=== PATIENT | female | born 1995 | race Caucasian/White ===

== ENCOUNTER 2016-08-06 13:27 | Inpatient (IN) | payer OTHER, MEDICAID ==
[2016-08-06] MEDS ORDERED: OXYTOCIN/DEXTROSE 5%-WATER 30 UNITS/500 ML BAG IV ONE ×2 (13:31→16:22)
[2016-08-06] MEDS ORDERED: DEXTROSE 5%-LACTATED RINGERS 1,000 ML IV PRN (13:31)
[2016-08-06] MEDS ORDERED: ONDANSETRON HCL/PF 2 MG/ML VIAL IV PRN ×3 (13:31→13:52)
[2016-08-06] MEDS ORDERED: LIDOCAINE HCL 50 ML VIAL PERI PRN (13:31)
[2016-08-06] MEDS ORDERED: RINGERS SOLUTION,LACTATED 1,000 ML IV ONE (13:31)
[2016-08-06] MEDS ORDERED: BUPIVACAINE HCL/0.9 % NACL/PF 250 ML EP PRN (13:39)
[2016-08-06] MEDS ORDERED: NALOXONE HCL 1 MG/1 ML SYRG IV PRN ×2 (13:39→13:52)
[2016-08-06] MEDS ORDERED: BUPIVACAINE HCL/PF 30 ML VIAL EP SCH (13:45)
[2016-08-06] MEDS ORDERED: fentaNYL CITRATE/PF 50 MCG/ML AMPUL IT SCH (14:00)
--- NOTE | 2016-08-06 14:12 | OR ---
Anesthesia Procedure Note - Anesthesia Procedure Note Date of Service: 08/06/16 Narrative: Vital Signs - Last Taken Temp 37.1 C 08/06/16 14:06 Pulse 87 08/06/16 14:06 Resp 22 H 08/06/16 14:06 BP 101/56 08/06/16 14:06 Pulse Ox 100 08/06/16 14:06 08/06/16 14:09 ANESTHESIA PROCEDURE NOTE Date of Procedure: 08/06/2016. Time of procedure: 1350. Performed by: Jacques Oakes CRNA Placement Officer: None. Preprocedure diagnosis: Active labor. Post procedure diagnosis: Same. Procedure: Intrathecal injection of fentanyl. Indications: The patient is a 21 -year-old female in active labor requesting labor epidural for pain management. Findings: See below. Details of the procedure: The patient was placed in a sitting position. DuraPrep to the patient's back. Patient was then draped in a sterile fashion. Lidocaine 1% was infiltrated to the skin and subcutaneous tissues at the level of the L3-4 interspace. Free flow of cerebrospinal fluid was obtained using a 25-gauge Pencan spinal needle. 20 mics of fentanyl was injected and the spinal needle was removed intact. No paresthesias were noted during procedure. EBL: Minimal. Fluids: N/A. Specimen: N/A. Post procedure condition: The patient tolerated the procedure well. No complications were noted. Thank you for this consultation. Jacques Oakes CRNA
[2016-08-06] MEDS ORDERED: HYDROCORTISONE 30 APPL TUBE TP PRN (16:22)
[2016-08-06] MEDS ORDERED: BISACODYL 10 MG SUPP.RECT RC PRN (16:22)
[2016-08-06] MEDS ORDERED: BENZOCAINE/MENTHOL 81 SPRAY CAN TP PRN (16:22)
[2016-08-06] MEDS ORDERED: GLYCERIN/WITCH HAZEL LEAF 40 APPL BOX TP PRN (16:22)
[2016-08-06] MEDS ORDERED: SENNOSIDES 8.6 MG TABLET PO PRN (16:22)
--- NOTE | 2016-08-06 16:24 | OR ---
Operative Report - Dictated Report Narrative: Artificial rupture of membranes revealed port wine colored fluid. Spontaneous vaginal delivery of viable male at 1428 on 08/06/2016 with Apgars 9 and 9, weighing 3057 g. Nuchal cord 1 Cord clamping delayed approximately 1 minute Placenta delivered complete, intact, with three vessel cord Estimated blood loss: less than 50 ml Lacerations: First-degree right periurethral laceration with no repair
[2016-08-06] MEDS: IBUPROFEN 800 MG TABLET PO PRN (16:39)
[2016-08-06] MEDS: oxyCODONE HCL/ACETAMINOPHEN 1 TAB TABLET PO PRN ×2 (18:10→21:35)
[2016-08-06] MEDS: DOCUSATE SODIUM 100 MG CAPSULE PO SCH (20:25)
[2016-08-07] MEDS: oxyCODONE HCL/ACETAMINOPHEN 1 TAB TABLET PO PRN ×4 (01:17→19:58)
[2016-08-07] MEDS: IBUPROFEN 800 MG TABLET PO PRN ×3 (01:18→16:25)
[2016-08-07] MEDS: PRENATAL VIT#96/FERROUS FUM/FA 1 TAB TABLET PO SCH (08:16)
[2016-08-07] MEDS: FERROUS SULFATE 325 MG TABLET PO SCH (08:16)
[2016-08-07] MEDS: DOCUSATE SODIUM 100 MG CAPSULE PO SCH (08:16)
--- NOTE | 2016-08-07 12:09 | PN ---
Subjective - Date and Time Seen Date: 08/07/16 Time: 12:09 Objective - Vitals Vitals: Last Vital Signs Temp 36.4 C L 08/07/16 06:48 Pulse 85 08/07/16 06:48 Resp 16 08/07/16 06:48 BP 105/63 08/07/16 06:48 Pulse Ox 99 08/07/16 06:48 Patient denies complaints. Lochia wnl Abdomen - soft, nontender Uterus - firm, at umbilicus - 1 No calf tenderness Impression: day #1 - s/p spontaneous vaginal delivery. Plan: Continue routine care
[2016-08-08] MEDS: oxyCODONE HCL/ACETAMINOPHEN 1 TAB TABLET PO PRN ×3 (01:55→14:45)
[2016-08-08] MEDS: DOCUSATE SODIUM 100 MG CAPSULE PO SCH ×2 (01:55→08:51)
[2016-08-08] MEDS: IBUPROFEN 800 MG TABLET PO PRN ×2 (01:56→08:52)
--- NOTE | 2016-08-08 05:54 | PATH ---
PHYSICIAN: Rodrigo Weinstein DO LAB#: [id number] SPECIMEN DATE: 08/07/2016 SPECIMEN: Placenta CLINICAL INFORMATION: Smoker, opiate in the first trimester, fast labor. Artificial rupture of membrane with port wine amniotic fluid. Spontaneous vaginal delivery of viable male with Apgars 9 and 9 and weighing 3057 g. nuchal cord 1 GROSS DESCRIPTION: The specimen is received in a formalin filled container appropriately designated but not as to site. The specimen consists of a 19.1 x 18.6 x 3.5 cm 585 g placenta with an eccentric attached 46 cm x 1.1 cm trivascular umbilical cord. The membranes are slightly opacified. The plate is slate sales with no abnormalities. Maternal cotyledons are unremarkable. Cross-sections through the placenta shows beefy red parenchyma with no focal lesions. Summary of cassettes: 1 = umbilical cord; 2,3 = plate; 4 = maternal surface; 5 = membranes. DIAGNOSIS: INTRAUTERINE CONTENTS, SPONTANEOUS VAGINAL DELIVERY: THIRD TRIMESTER TRI-VASCULAR UMBILICAL CORD 585 GRAM PLACENTA SHOWING: -NO PATHOLOGIC FINDINGS COMMENT: No evidence of chorioamnionitis or infarction.
[2016-08-08] MEDS: PRENATAL VIT#96/FERROUS FUM/FA 1 TAB TABLET PO SCH (08:51)
[2016-08-08] MEDS: FERROUS SULFATE 325 MG TABLET PO SCH (08:51)
[2016-08-08 09:01] VITALS: BP 127/92
--- NOTE | 2016-08-08 10:44 | PN ---
Subjective - Date and Time Seen Date: 08/08/16 Time: 10:43 Objective - Vitals Vitals: Last Vital Signs Temp 36.6 C 08/08/16 08:50 Pulse 67 08/08/16 08:50 Resp 18 08/08/16 08:50 BP 127/92 08/08/16 08:50 Pulse Ox 99 08/08/16 08:50 Patient denies complaints. Lochia wnl Abdomen - soft, nontender Uterus - firm, at umbilicus - 2 No calf tenderness Impression: day #2 - s/p spontaneous vaginal delivery. Plan: Routine discharge instructions
== END 2016-08-08 15:35 | disposition home or self-care (01) | DRG 775 ==
LOC: OB 13:27
PROVIDERS: ADMIT Obstetrics & Gynecology; ATTEND Obstetrics & Gynecology
PROC: 10E0XZZ Delivery of Products of Conception, External Approach (ICD-10-PCS; principal; 2016-08-06)
PROC: 10907ZC Drainage of Amniotic Fluid, Therapeutic from Products of Conception, Via Natural or Artificial Opening (ICD-10-PCS; 2016-08-06)
PROC: 4A1HXCZ Monitoring of Products of Conception, Cardiac Rate, External Approach (ICD-10-PCS; 2016-08-06)
PROC: 00HU33Z Insertion of Infusion Device into Spinal Canal, Percutaneous Approach (ICD-10-PCS; 2016-08-06)
DX: O99.02 Anemia complicating childbirth (principal); D64.9 Anemia, unspecified; O69.81X0 Labor and delivery complicated by cord around neck, without compression, not applicable or unspecified; O70.0 First degree perineal laceration during delivery; Z3A.38 38 weeks gestation of pregnancy; Z37.0 Single live birth

== ENCOUNTER 2018-02-11 06:46 | Observation (INO) ==
[2018-02-11 07:51] LABS: Cocaine Ur Negative (NEGATIVE); Urine Barbiturate Negative (NEGATIVE); Urine Benzodiazepines Negative (NEGATIVE); Urine Opiates Negative (NEGATIVE); Urine PCP Negative (NEGATIVE); Urine THC Negative (NEGATIVE)
[2018-02-11] MEDS ORDERED: BETAMETHASONE ACETATE,SOD PHOS 6 MG/ML VIAL IM ONE (08:26)
[2018-02-11] MEDS ORDERED: TERBUTALINE SULFATE 1 MG/ML VIAL SC ONE (08:41)
[2018-02-11] MEDS ORDERED: TERBUTALINE SULFATE 1 MG/ML VIAL SC PRN (08:41)
[2018-02-11] MEDS ORDERED: CLINDAMYCIN PHOSPHATE 900 MG in DEXTROSE 5 % IN WATER 100 ML IV ONE ×2 (08:41)
[2018-02-11] MEDS ORDERED: RINGER'S SOLUTION,LACTATED 1,000 ML IV PRN (08:41)
[2018-02-11 10:33] LABS: Urine Bilirubin Negative (NEGATIVE); Urine Blood Negative /ul (NEGATIVE); Urine Ketone Negative (NEGATIVE); Urine Nitrite Negative (NEGATIVE); Urine Protein Negative (NEGATIVE); Urine Urobilinogen Normal (NORMAL); Urine pH 6.5 pH (5.0-7.0)
--- NOTE | 2018-02-11 10:40 | HP ---
Chief Complaint - Chief Complaint Date of Service: 02/11/18 Time of Service: 10:04 Chief Complaint: contractions History of Present Illness: 23 yo at 35 5/7 weeks presents to L&D complaining of frequent painful contractions (5/10) awakening her from sleep around 0400 this am. She denies recent coitus, trauma, LOF, vaginal bleeding, abnormal vaginal d/c, UTI s/s, recent illnesses, or drug use. This complicated by anemia, h/o meth use, and poor dentition. Her UDS was positive for amphetamines at first PNV and today. She denies use of meth, but admits to being around others using it. Upon presentation to L&D, she was sj q 2-3 min, her cervix made minor change from 03/07/-3 to 2/-2. Contractions stopped after one dose of terbutaline. Rh negative Rubella immune GBS pending Medical History (Last Reviewed 02/11/18 @ 10:33 by Rodrigo Weinstein DO) Influenza vaccination declined by patient (Acute) Onset Date: 11/18/17 Eczema Anemia Onset Date: ~05/31/16 Surgical History: Surgical History (Last Reviewed 10/07/17 @ 13:52 by Rodrigo Weinstein DO) No pertinent past surgical history Family History: Family History (Last Reviewed 10/07/17 @ 13:52 by Rodrigo Weinstein DO) Father Alive and well Mother Hypertension Grandfather Diabetes Social History: Preferred Language Fijian Smoking Status Current every day smoker Abuse History No History of abuse Psych History No pertinent hx (Last Updated 11/18/17 @ 11:48 by Rodrigo Weinstein DO) No Social History Section defined Review Of Systems (GEN) - Review of Systems Generalized/Overall Review: Present: No Symptoms Reported EENTM: Present: No Symptoms Reported Respiratory: Present: No Symptoms Reported Cardiac: Present: No Symptoms Reported Abdominal: Present: Other - contractions 5/10 Genitourinary: Present: No Symptoms Reported Musculoskeletal: Present: No Symptoms Reported Neurological: Present: No Symptoms Reported Skin: Present: No Symptoms Reported Endocrine: Present: No Symptoms Reported Immunizations: IMMUNIZATION HX Immunizations Up to Date Yes History of Influenza Vaccine No Hx Pneumococcal Vaccination No Allergies/Adverse Reactions: Allergies Allergy/AdvReac Type Severity Reaction Status Date / [facility] Allergy Anaphylaxis Verified 02/11/18 07:09 Penicillins Allergy Anaphylaxis Verified 02/11/18 07:09 Sulfa (Sulfonamide Allergy Anaphylaxis Verified 02/11/18 07:09 Antibiotics) Home Medications: HOME MEDICATIONS Vits96/Iron Fum/Folic [ S] 1 tab PO DAILY 08/06/16 [Last Taken Unknown] Exam - Exam Vital Signs: Vital Signs - Last Taken Temp 36.2 C 02/11/18 09:53 Pulse 109 H 02/11/18 09:53 Resp 18 02/11/18 09:53 BP 116/69 02/11/18 09:53 Pulse Ox 100 02/11/18 09:53 Constitutional: Present: Alert, Oriented x3, Cooperative, No distress ENT Exam: Present: hearing grossly normal Neck: Present: non-tender, trachea midline. Absent: lymphadenopathy (R), lymphadenopathy (L), thyromegaly Breasts: Present: Exam deferred Respiratory: Present: lungs clear, no respiratory distress Cardiovascular/Chest: Present: normal peripheral pulses, regular rate, rhythm - mild tachycardia after dose of terbuataline, no edema Abdomen: Present: soft, nontender, no rebound tenderness, other - gravid /Rectal: Present: Other - cervix 2/60/-2 Extremity: Present: no pedal edema, no calf tenderness Skin Exam: Present: normal color, warm/dry, no cyanosis Lymphatic: Present: no adenopathy Neurologic: Present: alert, normal mood/affect, oriented x 3 Appearance: Present: appropriate appearance Eye contact: Present: cooperative, good eye contact Thoughts: Present: normal thought pattern Diagnostic Studies: Abnormal Lab Results 02/11/18 Range/Units 07:20 Urine Amphetamine Positive H (NEGATIVE) Laboratory Results Urine Opiates Screen Negative (NEGATIVE) 02/11/18 07:20 Barbiturate Screen Negative (NEGATIVE) 02/11/18 07:20 Ur Phencyclidine Scrn Negative (NEGATIVE) 02/11/18 07:20 Urine Amphetamine Positive (NEGATIVE) H 02/11/18 07:20 U Benzodiazepines Scrn Negative (NEGATIVE) 02/11/18 07:20 Urine Cocaine Screen Negative (NEGATIVE) 02/11/18 07:20 Urine Marijuana (THC) Negative (NEGATIVE) 02/11/18 07:20 Assessment/Plan - Assessment/Plan (1) labor in third trimester Assessment: Responded to terbuataline. Will admit for 23 hour observation to complete course of steroids and continue IV Clindamycin for GBS prophylaxis until culture available. If continues to make cervical change will transfer to [facility]. Problem: Acute Qualifiers: labor delivery status: without delivery Qualified Code(s): O60.03 - labor without delivery, third trimester (2) Substance abuse complicating , antepartum Problem: Chronic (3) Anemia affecting Problem: Acute Qualifiers: Trimester: third trimester Qualified Code(s): O99.013 - Anemia complicating , third trimester
[2018-02-11 10:41] LABS: Urine Appearance Clear (CLEAR); Urine Color Pale Yellow; Urine RBC None Seen /hpf (0-5); Urine WBC 0-5 /hpf (0-5)
[2018-02-11 10:42] LABS: Urine Bacteria TRACE
[2018-02-11] MEDS ORDERED: ACETAMINOPHEN 325 MG TABLET PO PRN (20:42)
[2018-02-12 08:14] VITALS: BP 94/41
[2018-02-12] MEDS ORDERED: BETAMETHASONE ACETATE,SOD PHOS 6 MG/ML VIAL IM ONE (09:54)
--- NOTE | 2018-02-12 09:58 | PN ---
Subjective - Date and Time Seen Date: 02/12/18 Time: 09:55 Subjective Narrative: Patient denies contractions, LOF, decreased FM, or vaginal d/c. Objective - Review of Systems Generalized/Overall Review: Reports: No Symptoms Reported EENTM: Reports: No Symptoms Reported Respiratory: Reports: No Symptoms Reported Cardiac: Reports: No Symptoms Reported Abdominal: Reports: No Symptoms Reported Genitourinary Symptoms: Reports: No Symptoms Reported Musculoskeletal Complaints: Reports: No Symptoms Reported Neurological: Reports: No Symptoms Reported Skin: Reports: No Symptoms Reported Endocrine: Reports: No Symptoms Reported - Vitals Vitals: Last Vital Signs Temp 36.7 C 02/12/18 08:12 Pulse 105 H 02/12/18 08:12 Resp 20 02/12/18 08:12 BP 94/41 02/12/18 08:12 Pulse Ox 97 02/12/18 08:12 - Abnormal Lab Findings Abnormal Lab Findings: Abnormal Lab Results 02/11/18 Range/Units 10:00 Ur Epithelial Cells 5-10 H (0-5) /hpf - EKG/Xray Findings EKG: other - NST reactive - Exam Constitutional: Present: Alert, Oriented x3, Cooperative ENT Exam: Present: hearing grossly normal Respiratory: Present: no respiratory distress Cardiovascular/Chest: Present: regular rate, rhythm Abdomen: Present: soft, nontender, other - gravid /Rectal: Present: Exam deferred Extremity: Present: no calf tenderness Skin Exam: Present: normal color, warm/dry, no cyanosis Appearance: Present: appropriate appearance Eye contact: Present: cooperative, good eye contact Thoughts: Present: normal thought pattern Assessment/Plan Plan Narrative: Discharge to home. F/u in one week. PTL precautions. Avoid substance abuse. DHS/Social service referral. - Problems/Diagnosis (1) labor in third trimester Problem: Acute Qualifiers: labor delivery status: without delivery Qualified Code(s): O60.03 - labor without delivery, third trimester (2) Substance abuse complicating , antepartum Problem: Chronic (3) Anemia affecting Problem: Acute Qualifiers: Trimester: third trimester Qualified Code(s): O99.013 - Anemia complicating , third trimester
== END 2018-02-12 09:25 | disposition home or self-care (01) ==
LOC: OBCLINIC 06:46 → OB 06:46
PROVIDERS: ADMIT Obstetrics & Gynecology; ATTEND Obstetrics & Gynecology
DX: O99.013 Anemia complicating pregnancy, third trimester; O60.03 Preterm labor without delivery, third trimester; O99.320 Drug use complicating pregnancy, unspecified trimester
CPT/HCPCS: 59025; 80307; 81001; 87081; 96372; G0378; G0379

== ENCOUNTER 2018-03-12 14:59 | Inpatient (IN) ==
[2018-03-12] MEDS ORDERED: DEXTROSE 5%-LACTATED RINGERS 1,000 ML IV PRN (15:04)
[2018-03-12] MEDS ORDERED: ONDANSETRON HCL/PF 2 MG/ML VIAL IV PRN ×2 (15:04→15:15)
[2018-03-12] MEDS ORDERED: RINGER'S SOLUTION,LACTATED 1,000 ML IV ONE (15:04)
[2018-03-12] MEDS ORDERED: OXYTOCIN/DEXTROSE 5%-WATER 30 UNITS/500 ML BAG IV ONE ×2 (15:04→18:24)
[2018-03-12] MEDS ORDERED: LIDOCAINE HCL 50 ML VIAL PERI PRN (15:04)
[2018-03-12] MEDS ORDERED: fentaNYL CITRATE/PF 50 MCG/ML AMPUL IT SCH (15:15)
[2018-03-12] MEDS ORDERED: BUPIVACAINE HCL/0.9 % NACL/PF 250 ML EP PRN (15:15)
[2018-03-12] MEDS ORDERED: NALOXONE HCL 1 MG/1 ML SYRG IV PRN (15:15)
[2018-03-12 15:40] LABS: Cocaine Ur Negative (NEGATIVE); Urine Barbiturate Negative (NEGATIVE); Urine Benzodiazepines Negative (NEGATIVE); Urine Opiates Negative (NEGATIVE); Urine PCP Negative (NEGATIVE); Urine THC Negative (NEGATIVE)
--- NOTE | 2018-03-12 15:47 | ANES ---
Anesthesia Pre Procedure Eval Vitals/Labs: HR:102 BP: 121/71 RR:20 T: 36.5 C SaO2:100 HOME MEDICATIONS RX: Vits96/Iron Fum/Folic [ S] 1 tab PO DAILY 08/06/16 [Last Taken 02/26/18] RX: Ferrous Sulfate 325 mg PO BID #60 tab 02/12/18 [Last Taken 02/25/18] Allergies/Adverse Reactions: Allergies Allergy/AdvReac Type Severity Reaction Status Date / Time cefaclor [From [facility]] Allergy Anaphylaxis Verified 03/12/18 15:08 Penicillins Allergy Anaphylaxis Verified 03/12/18 15:08 Sulfa (Sulfonamide Allergy Anaphylaxis Verified 03/12/18 15:08 Antibiotics) - Planned Procedure Planned Procedure: LABOR Medication List Reviewed:: Yes Allergies Verified: Yes Medical History (Last Reviewed 03/12/18 @ 15:43 by Cole Hay CRNA) Influenza vaccination declined by patient (Acute) Onset Date: 11/18/17 Eczema Anemia Onset Date: ~05/31/16 Surgical History (Last Reviewed 03/12/18 @ 15:43 by Cole Hay CRNA) No pertinent past surgical history Family History (Last Reviewed 03/12/18 @ 15:43 by Cole Hay CRNA) Father Alive and well Mother Hypertension Grandfather Diabetes - Family Anesthesia History Family History:: no untoward family reactions to anesthesia, no familial bleeding tendencies, no family history of clotting disorders, no family history of premature - Airway/Neck/Teeth Within Normal Limits:: Yes Teeth Condition: intact Neck Exam: full range of motion Mallampatti Score: 2 Thyromental (T-M) distance: > 6 cm Mandibulo Hyoid distance: > 3 cm - Respiratory Respiratory Physical: wheezing Smoking Status: Current some day smoker Discussed smoking cessation including day of surgery: Yes Sleep Apnea currently treated: No Sleep Apnea by current assessment: No - Cardiovascular Tolerate Activity: Fair Heart Sounds: S1 & S2, Regular - Anesthesia Assessment and Plan ASA Class: PS, II, E Anesthesia Type Plan: Epidural - CSE for labor analgesia
[2018-03-12] MEDS ORDERED: LIDOCAINE HCL/EPINEPHRINE 20 ML VIAL ONE (15:52)
--- NOTE | 2018-03-12 16:06 | HP ---
Chief Complaint - Chief Complaint Date of Service: 03/12/18 Chief Complaint: vaginal bleeding and contractions History of Present Illness: 23 yo, CF, at 39.6 weeks, dated by a 17.4 week ultrasound, presents to the birthplace for vaginal bleeding. She woke up at about 2 pm from nap noting a small blood on her shot and came in for a check. Contractions started 40 min ago. denies leaking fluid. is complicated by limited care, non-compliance and urine drug screen positive for amphetamine x 2. Denies recent drug use in the past month. She had fast labor and delivery with her last that took only one hour. Her cervical exam was 4 cm, 75% and -2 with bloody show only. Placenta was left lateral fundal by a bedside ultrasound today. PMH: none PSH: none SH: admitted to drug use one month before, and smokes 1/2 ppd of cigarettes. labs: 1. GBS negative (02/11/18) 2. UDS positive for amphetamine x 2 ( 10/07/17, and 02/11/18) 3. blood type: A negative 4. rubella status unknown. Medical History (Last Reviewed 03/12/18 @ 15:43 by Cole Hay CRNA) Influenza vaccination declined by patient (Acute) Onset Date: 11/18/17 Eczema Anemia Onset Date: ~05/31/16 Surgical History: Surgical History (Last Reviewed 03/12/18 @ 15:43 by Cole Hay CRNA) No pertinent past surgical history Family History: Family History (Last Reviewed 03/12/18 @ 15:43 by Cole Hay CRNA) Father Alive and well Mother Hypertension Grandfather Diabetes Social History: Preferred Language Kyrgyz Smoking Status Current some day smoker Smoking packs per day 0.5 Abuse History No History of abuse Psych History No pertinent hx (Last Updated 02/17/18 @ 17:01 by Rodrigo Weinstein DO) No Social History Section defined Review Of Systems (GEN) - Review of Systems Abdominal: Present: Other - contractions Genitourinary: Present: Other - vaginal bleeding: bloody show Misc: All systems neg except as marked Immunizations: IMMUNIZATION HX Immunizations Up to Date Yes History of Influenza Vaccine No Hx Pneumococcal Vaccination No Allergies/Adverse Reactions: Allergies Allergy/AdvReac Type Severity Reaction Status Date / Time [facility] Allergy Anaphylaxis Verified 03/12/18 15:08 Penicillins Allergy Anaphylaxis Verified 03/12/18 15:08 Sulfa (Sulfonamide Allergy Anaphylaxis Verified 03/12/18 15:08 Antibiotics) Home Medications: HOME MEDICATIONS Vits96/Iron Fum/Folic [ S] 1 tab PO DAILY 08/06/16 [Last Taken 02/26/18] Ferrous Sulfate 325 mg PO BID #60 tab 02/12/18 [Last Taken 02/25/18] Exam - Exam Vital Signs: Vital Signs - Last Taken Temp 36.5 C 03/12/18 15:46 Pulse 102 H 03/12/18 15:46 Resp 20 03/12/18 15:46 BP 121/71 03/12/18 15:46 Pulse Ox 100 03/12/18 15:46 Constitutional: Present: Alert, Oriented x3, Cooperative Neck: Present: supple Respiratory: Present: lungs clear, normal breath sounds, no respiratory distress Cardiovascular/Chest: Present: regular rate, rhythm, no murmur Abdomen: Present: soft, nontender, nondistended, other - gravid /Rectal: Present: Other - cervix: 4 cm, 75% and -2, bloody show Extremity: Present: no pedal edema, no calf tenderness Skin Exam: Present: normal color, warm/dry, no cyanosis Appearance: Present: appropriate appearance Eye contact: Present: cooperative, good eye contact, normal speech Diagnostic Studies: Laboratory Results Urine Opiates Screen Negative (NEGATIVE) 03/12/18 15:00 Barbiturate Screen Negative (NEGATIVE) 03/12/18 15:00 Ur Phencyclidine Scrn Negative (NEGATIVE) 03/12/18 15:00 Urine Amphetamine Negative (NEGATIVE) 03/12/18 15:00 U Benzodiazepines Scrn Negative (NEGATIVE) 03/12/18 15:00 Urine Cocaine Screen Negative (NEGATIVE) 03/12/18 15:00 Urine Marijuana (THC) Negative (NEGATIVE) 03/12/18 15:00 presentation: cephalic by bedside u/s. FHR: reassuring 130s with accels, no decels. Lehr: irregular contractions Assessment/Plan - Narrative Narrative: A: at 39.6 weeks, in labor with bloody show and irregular contractions. GBS negative. Plan: admit for labor and monitor. routine labor care. epidural if desired. augmentation if needed. Shantanu Torrez Md
--- NOTE | 2018-03-12 16:12 | ANES ---
Post Anesthesia Discharge - Transfer of Care Transfer of Care handoff given to nurse: Yes - Discharge from PACU Discharge from PACU when meets criteria: Yes - Comfortable after CSE
--- NOTE | 2018-03-12 16:14 | ANES ---
Anesthesia Procedure Note Procedure Note: ANESTHESIA PROCEDURE NOTE Date of Procedure: 03/12/2018 Time of procedure: 1540. Performed by: Cole Hay CRNA, MSN Front End Technician: Mona Flaherty RN. Preprocedure diagnosis: Active labor, labor pain. Post procedure diagnosis: Same. Procedure:Epidural for labor analgesia L3 4. Indications: Labor pain. Findings: See below. Details of the procedure: The patient was placed on the side of the bed in sitting positionand prepped with DuraPrep then draped in a sterile fashion. Lidocaine 1% was infiltrated to the skin and subcutaneous tissues at the level of the L3 4 interspace. An 18-gauge Touhy needle was used to approach the epidural space with loss of resistance technique. Once loss of resistance was achieved a 27-gauge spinal needle was passed through the epidural needle and CSF was contacted. After CSF returned, 20 mcg of fentanyl was injected in the spinal needle was removed the epidural catheter was then threaded approximately 4 cm in the epidural needle was removed. The catheter was taped in place and after careful aspiration 3 mL of 2% lidocaine with 1-200,000 epinephrine was injected without change in maternal heart rate or sensorium. . EBL: Minimal. Fluids: N/A. Specimen: N/A. Post procedure condition: The patient tolerated the procedure well with good rel ief. No complications were noted. Thank you for this consultation. Cole Hay CRNA, MSN
--- NOTE | 2018-03-12 16:21 | ANES ---
Post Anesthesia Assessment - Vital Signs Vitals: Last Vital Signs Temp 36.5 C 03/12/18 15:46 Pulse 102 H 03/12/18 15:46 Resp 20 03/12/18 15:46 BP 121/71 03/12/18 15:46 Pulse Ox 100 03/12/18 15:46 Airway Patency: Normal - Mental Status Level Of Consciousness: Awake, Alert, Appropriate - Pain Level Pain Score: 0 - N/V Assessment Nausea/Vomiting Presence: None Dehydration:: No
[2018-03-12 17:20] LABS: Hematocrit 34.8 % (37.0-47.0); Hemoglobin 10.8 gm/dL (12.5-16.0); Mean Cell Volume 85.3 fl (78-100); Mean Corpuscular Hemoglobin 26.5 pg (27-31); Mean Platelet Volume 10.6 fl (8-12.5); Neutrophil % 76.5 % (42-75.0); Platelet Count 287 K/mm3 (150-450); Red Blood Count 4.08 M/mm3 (4.2-5.4); Red Cell Distribution Width 14.6 % (11.5-14.0); White Blood Count 15.6 K/mm3 (4.0-10.5)
[2018-03-12] MEDS ORDERED: SENNOSIDES 8.6 MG TABLET PO PRN (18:24)
[2018-03-12] MEDS ORDERED: GLYCERIN/WITCH HAZEL LEAF 40 APPL BOX TP PRN (18:24)
[2018-03-12] MEDS ORDERED: BISACODYL 10 MG SUPP.RECT RC PRN (18:24)
[2018-03-12] MEDS ORDERED: HYDROCORTISONE 30 APPL TUBE TP PRN (18:24)
[2018-03-12] MEDS ORDERED: BENZOCAINE/MENTHOL 81 SPRAY CAN TP PRN (18:24)
[2018-03-12] MEDS ORDERED: oxyCODONE HCL/ACETAMINOPHEN 1 TAB TABLET PO PRN (18:24)
--- NOTE | 2018-03-12 18:27 | OR ---
Operative Report - Dictated Report Narrative: Spontaneous vaginal delivery of vigorously crying viable male at 1807 on 03/12/2018 with Apgars 9 and 9, weighing 3407 g in BOB position. Terminal meconium. Cord clamping delayed approximately 1 minute Placenta delivered complete, intact, with three vessel cord Estimated blood loss: less than 50 ml Anesthesia: epidural Lacerations: None
[2018-03-12] MEDS: IBUPROFEN 800 MG TABLET PO PRN (20:45)
[2018-03-12] MEDS: DOCUSATE SODIUM 100 MG CAPSULE PO SCH (20:45)
[2018-03-12] MEDS: oxyCODONE HCL/ACETAMINOPHEN 1 TAB TABLET PO PRN (21:33)
[2018-03-13] MEDS: oxyCODONE HCL/ACETAMINOPHEN 1 TAB TABLET PO PRN ×4 (04:12→19:11)
[2018-03-13] MEDS: IBUPROFEN 800 MG TABLET PO PRN ×3 (04:46→22:01)
[2018-03-13] MEDS: DOCUSATE SODIUM 100 MG CAPSULE PO SCH ×3 (07:55→22:00)
--- NOTE | 2018-03-13 09:01 | PN ---
Subjective - Date and Time Seen Date: 03/13/18 Time: 09:01 Objective - Vitals Vitals: Last Vital Signs Temp 36.3 C 03/13/18 08:00 Pulse 96 03/13/18 08:00 Resp 18 03/13/18 08:00 BP 113/57 03/13/18 08:00 Pulse Ox 98 03/13/18 08:00 Patient denies complaints. Breast-feeding well Lochia wnl Abdomen - soft, nontender Uterus - firm, at umbilicus - 1 No calf tenderness Impression: day #1 - s/p spontaneous vaginal delivery. Plan: Continue routine care - Abnormal Lab Findings Abnormal Lab Findings: Abnormal Lab Results 03/12/18 Range/Units 17:10 WBC 15.6 H (4.0-10.5) K/mm3 RBC 4.08 L (4.2-5.4) M/mm3 Hgb 10.8 L (12.5-16.0) gm/dL Hct 34.8 L (37.0-47.0) % MCH 26.5 L (27-31) pg MCHC 31.0 L (32-36) g/dl RDW 14.6 H (11.5-14.0) % Immature Gran % (Auto) 0.60 H (0.001-0.429) % Immature Gran # (Auto) 0.09 H (0.000-0.0310) K/mm3 Neutrophils % 76.5 H (42-75.0) % Lymphocytes % 14.2 L (20-51) % Neutrophils # 12.0 H (1.3-6.0) K/mm3 Monocytes # 1.1 H (0.0-1.0) k/mm3 Cauti Physician Documentation - Urinary Catheter Management Urethral (Martinez) Date of Insertion: 03/12/18 Time of Insertion: 16:40 Date of Removal: 03/12/18 Time of Removal: 17:57
[2018-03-14] MEDS: oxyCODONE HCL/ACETAMINOPHEN 1 TAB TABLET PO PRN ×3 (01:57→14:36)
[2018-03-14] MEDS: IBUPROFEN 800 MG TABLET PO PRN ×2 (04:11→14:36)
[2018-03-14] MEDS: DOCUSATE SODIUM 100 MG CAPSULE PO SCH ×2 (07:59→11:00)
--- NOTE | 2018-03-14 13:21 | PN ---
Subjective - Date and Time Seen Date: 03/14/18 Time: 13:20 Objective - Vitals Vitals: Last Vital Signs Temp 36.6 C 03/14/18 07:15 Pulse 83 03/14/18 07:15 Resp 20 03/14/18 07:15 BP 108/70 03/14/18 07:15 Pulse Ox 98 03/14/18 07:15 Patient denies complaints. Breast-feeding Lochia wnl Abdomen - soft, nontender Uterus - firm, at umbilicus - 2 No calf tenderness Impression: day #2 - s/p spontaneous vaginal delivery. Plan: Routine discharge instructions Cauti Physician Documentation - Urinary Catheter Management Urethral (Martinez) Date of Insertion: 03/12/18 Time of Insertion: 16:40 Date of Removal: 03/12/18 Time of Removal: 17:57
[2018-03-14 14:03] VITALS: BP 112/67
[2018-03-17 11:26] LABS: Hep B Surface Antigen Confirm DNR
[2018-03-17 11:53] LABS: Hepatitis B Surface Antigen NON-REACTIVE (NON-REACTIVE)
--- NOTE | 2018-03-20 16:40 | PN ---
Progess Note - Interim Date: 03/20/18 Time: 16:40 History for MU Definition: * The number of deliveries resulting in a live the patient experienced prior to current hospitalization * The previous delivery of live twins or any live multiple gestation is considered one live event. *If primagravida or nulliparous is documented select zero for the number of previous live births. Live Events: 2
== END 2018-03-14 15:15 | disposition home or self-care (01) | DRG 807 ==
LOC: OBCLINIC 14:59 → OB 15:01 → MS 03-13 17:26
PROVIDERS: ADMIT Obstetrics & Gynecology; ATTEND Obstetrics & Gynecology
CPT/HCPCS: 36415; 59025; 80307; 85025; 86592; 86762; 86850; 86900; 87340; 87389; 88307